=== PATIENT | female | born 1965 | race Caucasian/White ===

== ENCOUNTER 2016-03-26 19:02 | Inpatient (IN) | payer MEDICAID, SELFPAY ==
[~2016-03-26] VITALS: Ht 154.9 cm; Wt 71.2 kg
[~2016-03-26 19:02] MED LIST: ALBU17AE16 IH; ATEN25 PO; BUDE0.5A5 IH; CLON.5 PO; HYDR25TA PO; SERT100T12 PO
[2016-03-26 20:46] LABS: BASOPHILS % (AUTO) 0.3 % (0.0-2.0); EOSINOPHILS % (AUTO) 6.8 % (1.0-6.0); HEMATOCRIT 38.1 % (36-46); HEMOGLOBIN 12.6 g/dL (12.0-16.0); LYMPHOCYTES # (AUTO) 4.1 K/uL (1.0-4.8); MEAN CORPUSCULAR HEMOGLOBIN 29.6 pg (26.0-34.0); MEAN CORPUSCULAR HGB CONC 33.1 G/dL (31.0-37.0); MEAN CORPUSCULAR VOLUME 89 fL (80-100); MONOCYTES % (AUTO) 8.9 % (2.0-9.0); NEUTROPHILS # (AUTO) 5.7 K/uL (1.8-7.7); PLATELET COUNT (AUTO) 277 K/uL (150-450); RED BLOOD CELL COUNT(AUTO) 4.27 MIL/uL (4.00-5.20); RED CELL DISTRIBUTION WIDTH 13.4 % (11.5-14.5); WHITE BLOOD COUNT (AUTO) 11.6 K/uL (4.5-11.0)
[2016-03-26] MEDS ORDERED: HALOPERIDOL 5 MG TABLET PO ONE (21:00)
[2016-03-26] MEDS ORDERED: LORazepam 2 MG TABLET PO ONE (21:00)
[2016-03-26 21:07] LABS: ANION GAP 7 mmol/L (8-16); CALCIUM, TOTAL 8.6 mg/dL (8.8-10.5); CARBON DIOXIDE 29 mmol/L (22-29); CHLORIDE 99 mmol/L (98-107); CREATININE 0.96 mg/dL (0.60-1.30); GLOMERULAR FILTR. RATE CALC > 60 mL/min (>60); POTASSIUM 3.8 mmol/L (3.5-5.1); SODIUM SERUM 135 mmol/L (136-145); UREA NITROGEN, BLOOD 30 mg/dL (7-18)
[2016-03-26 21:12] LABS: ALANINE AMINOTRANSFERASE 22 U/L (12-78); ALBUMIN 3.5 g/dL (3.4-5.0); ASPARTATE AMINOTRANSFERASE 20 U/L (15-37); BILIRUBIN,TOTAL 0.2 mg/dL (0.1-1.0); TOTAL PROTEIN, SERUM 8.1 g/dL (6.4-8.2)
[2016-03-26] MEDS ORDERED: ZOLPIDEM TARTRATE 10 MG TABLET PO PRN (22:00)
[2016-03-26] MEDS ORDERED: MAG HYDROX/AL HYDROX/SIMETH ES 30 ML SUSPENSION UDCUP PO PRN (22:00)
[2016-03-26] MEDS ORDERED: PROMETHAZINE HCL 25 MG TABLET PO PRN (22:00)
[2016-03-26] MEDS ORDERED: LOPERAMIDE HCL 2 MG CAPSULE PO PRN (22:00)
[2016-03-26] MEDS ORDERED: MAGNESIUM HYDROXIDE SUSPENSION 30 ML UDCUP PO PRN (22:00)
[2016-03-26] MEDS ORDERED: HALOPERIDOL 5 MG TABLET PO PRN (22:00)
[2016-03-26] MEDS ORDERED: ACETAMINOPHEN 325 MG TABLET PO PRN (22:00)
[2016-03-27] VITALS: BP 119/67
[2016-03-27] MEDS ORDERED: INFLUENZA VIRUS VACCINE QVS 2016-17 (3YR+)/PF 60 MCG/0.5 ML SYRINGE IM ONE (01:30)
[2016-03-27] MEDS ORDERED: PNEUMOCOCCAL VACCINE POLYVALENT 0.5 ML VIAL [PPSV23] IM ONE (01:30)
[2016-03-27] MEDS ORDERED: CloNIDine HCL 0.1 MG TABLET PO PRN (07:15)
[2016-03-27] MEDS ORDERED: ALBUTEROL SULFATE HFA 90 MCG/PUFF 8 GM INHALER IH PRN (07:18)
[2016-03-27 08:29] VITALS: BP 122/71
[2016-03-27] MEDS: AmLODIPine BESYLATE 5 MG TABLET PO SCH (08:35)
[2016-03-27] MEDS: HYDROCHLOROTHIAZIDE 25 MG TABLET PO SCH (08:35)
[2016-03-27] MEDS: CARVEDILOL 3.125 MG TABLET PO SCH ×2 (08:35→16:23)
[2016-03-27] MEDS: BUDESONIDE 180 MCG/INH INHALER [120] IH SCH ×2 (09:00→20:16)
[2016-03-27] MEDS ORDERED: ALBUTEROL SULFATE HFA 90 MCG/PUFF 8 GM INHALER IH SCH (09:00)
[2016-03-27 16:10] VITALS: BP 130/75
[2016-03-27] MEDS: OLANZapine 5 MG TABLET PO SCH (20:15)
[2016-03-28 01:22] VITALS: BP 148/86
[2016-03-28 08:45] VITALS: BP 118/66
[2016-03-28] MEDS: BUDESONIDE 180 MCG/INH INHALER [120] IH SCH ×2 (08:51→21:00)
[2016-03-28] MEDS: CARVEDILOL 3.125 MG TABLET PO SCH ×2 (08:51→17:00)
[2016-03-28] MEDS: FLUoxetine HCL 20 MG CAPSULE PO SCH (08:52)
[2016-03-28] MEDS: HYDROCHLOROTHIAZIDE 25 MG TABLET PO SCH (08:52)
[2016-03-28] MEDS: AmLODIPine BESYLATE 5 MG TABLET PO SCH (08:52)
[2016-03-28 10:06] LABS: CHOL/HDL RATIO 2.1 (3.9-5.7); MAGNESIUM 1.8 mg/dL (1.80-2.40); THYROID STIMULATING HORMONE 0.39 uIU/mL (0.36-3.74)
[2016-03-28] MEDS ORDERED: DiphenhydrAMINE HCL 50 MG/ML VIAL ONE (11:52)
[2016-03-28] MEDS ORDERED: LORazepam 2 MG/ML VIAL ONE (11:52)
[2016-03-28] MEDS ORDERED: HALOPERIDOL LACTATE 5 MG/ML VIAL ONE (11:52)
[2016-03-28] MEDS ORDERED: DiphenhydrAMINE HCL 50 MG/ML VIAL IM ONE (12:30)
[2016-03-28] MEDS ORDERED: LORazepam 2 MG/ML VIAL IM ONE (12:30)
[2016-03-28] MEDS ORDERED: HALOPERIDOL LACTATE 5 MG/ML VIAL IM ONE (12:30)
[2016-03-28] MEDS: OLANZapine 5 MG TABLET PO SCH (21:00)
[2016-03-29] MEDS: BUDESONIDE 180 MCG/INH INHALER [120] IH SCH ×2 (09:08→20:23)
[2016-03-29] MEDS: CARVEDILOL 3.125 MG TABLET PO SCH ×2 (09:09→16:12)
[2016-03-29] MEDS: AmLODIPine BESYLATE 5 MG TABLET PO SCH (09:09)
[2016-03-29] MEDS: HYDROCHLOROTHIAZIDE 25 MG TABLET PO SCH (09:09)
[2016-03-29] MEDS: LORazepam 2 MG TABLET PO PRN (09:09)
[2016-03-29] MEDS: FLUoxetine HCL 20 MG CAPSULE PO SCH (09:09)
[2016-03-29 16:12] VITALS: BP 146/44
[2016-03-29] MEDS: OLANZapine 5 MG TABLET PO SCH (20:23)
[2016-03-30 08:52] VITALS: BP 129/83
[2016-03-30] MEDS: AmLODIPine BESYLATE 5 MG TABLET PO SCH (09:31)
[2016-03-30] MEDS: CARVEDILOL 3.125 MG TABLET PO SCH ×2 (09:31→16:04)
[2016-03-30] MEDS: HYDROCHLOROTHIAZIDE 25 MG TABLET PO SCH (09:31)
[2016-03-30] MEDS: FLUoxetine HCL 20 MG CAPSULE PO SCH (09:32)
[2016-03-30] MEDS: BUDESONIDE 180 MCG/INH INHALER [120] IH SCH ×2 (09:32→20:28)
[2016-03-30] MEDS: GuaiFENesin/D-METHORPHAN/PHENYLEPH 5 ML LIQUID ORAL.SYG PO PRN ×2 (09:39→16:04)
[2016-03-30] MEDS: LORazepam 2 MG TABLET PO PRN (13:03)
[2016-03-30 16:06] VITALS: BP 133/82
[2016-03-30] MEDS: OLANZapine 5 MG TABLET PO SCH (20:28)
[2016-03-30] MEDS ORDERED: OLANZapine 5 MG TABLET PO ONE (22:45)
[2016-03-31 03:22] LABS: HEPATITIS Bs ANTIGEN SCREEN P Negative (Negative); HEPATITIS C AB SCREEN >11.0 s/co ratio (0.0-0.9)
[2016-03-31 04:17] VITALS: BP 147/100
[2016-03-31] MEDS: GuaiFENesin/D-METHORPHAN/PHENYLEPH 5 ML LIQUID ORAL.SYG PO PRN ×2 (04:21→11:01)
[2016-03-31] MEDS: CARVEDILOL 3.125 MG TABLET PO SCH (09:12)
[2016-03-31] MEDS: BUDESONIDE 180 MCG/INH INHALER [120] IH SCH (09:12)
[2016-03-31] MEDS: HYDROCHLOROTHIAZIDE 25 MG TABLET PO SCH (09:12)
[2016-03-31] MEDS: AmLODIPine BESYLATE 5 MG TABLET PO SCH (09:12)
[2016-03-31] MEDS: FLUoxetine HCL 20 MG CAPSULE PO SCH (09:12)
[2016-03-31] MEDS ORDERED: DIVALPROEX SODIUM 500 MG ER TABLET PO SCH ×2 (09:45→21:00)
[2016-03-31] MEDS ORDERED: FLUO-191 PO (10:02)
[2016-03-31] MEDS ORDERED: CARV3 PO (10:02)
[2016-03-31] MEDS ORDERED: OLAN10TA3 PO (10:02)
[2016-03-31] MEDS ORDERED: HYDR25TA PO (10:02)
[2016-03-31] MEDS ORDERED: AMLO-511 PO (10:02)
[2016-03-31] MEDS ORDERED: OLANZapine 10 MG TABLET PO SCH (21:00)
== END 2016-03-31 13:40 | disposition home or self-care (01) | DRG 750 ==
LOC: EMS 19:07 → B3A 21:12
PROVIDERS: ADMIT Psychiatry & Neurology Psychiatry; ATTEND Psychiatry & Neurology Psychiatry
DX: F25.0 Schizoaffective disorder, bipolar type (principal); F11.20 Opioid dependence, uncomplicated; I10 Essential (primary) hypertension; E11.9 Type 2 diabetes mellitus without complications; F15.20 Other stimulant dependence, uncomplicated; J44.9 Chronic obstructive pulmonary disease, unspecified; D72.828 Other elevated white blood cell count; E87.6 Hypokalemia; F12.90 Cannabis use, unspecified, uncomplicated; F41.9 Anxiety disorder, unspecified; F60.3 Borderline personality disorder; R45.850 Homicidal ideations; B19.20 Unspecified viral hepatitis C without hepatic coma; F17.210 Nicotine dependence, cigarettes, uncomplicated; Z62.819 Personal history of unspecified abuse in childhood; Z59.0 Homelessness; Z86.73 Personal history of transient ischemic attack (TIA), and cerebral infarction without residual deficits; Z87.440 Personal history of urinary (tract) infections; Z91.14 Patient's other noncompliance with medication regimen; Z91.5 Personal history of self-harm; Z88.0 Allergy status to penicillin; Z88.8 Allergy status to other drugs, medicaments and biological substances; Z79.899 Other long term (current) drug therapy; Z98.890 Other specified postprocedural states; Z90.49 Acquired absence of other specified parts of digestive tract; Z78.1 Physical restraint status; Z28.21 Immunization not carried out because of patient refusal; Z82.49 Family history of ischemic heart disease and other diseases of the circulatory system; Z84.89 Family history of other specified conditions
CPT/HCPCS: 80074; 82306; 82607; 82746; 83036; 83735; 84439; 84443; 86592; 90471; 99285; G0480; J1200; J1630; J2060; J3535